=== PATIENT | male | born 1960 | race Two or more races ===

== ENCOUNTER 2025-07-08 07:00 | Day surgery (SDC) | payer OTHER ==
[2025-07-05 12:16] VITALS: BP 160/80
[~2025-07-08] VITALS: Ht 170.2 cm; Wt 65.8 kg
[~2025-07-08 07:00] MED LIST: IRBESARTAN75 MG PO; SYNTHROID50 MCG PO
[2025-07-08] MEDS ORDERED: CEFAZOLIN SODIUM 1,000 MG VIAL ONE (08:15)
[2025-07-08] MEDS ORDERED: LIDOCAINE HCL 1%/EPINEPHRINE 20ML VIAL IJ ONE (09:20)
[2025-07-08] MEDS ORDERED: BUPIVACAINE HCL/MPF 0.5% 30ML VIAL ONE (09:20)
[2025-07-08] MEDS ORDERED: SUGAMMADEX SODIUM 200 MG/2 ML VIAL IV ONE (11:04)
== END 2025-07-08 16:10 | disposition home or self-care (01) ==
LOC: CIR.AMB 07:00
PROVIDERS: ATTEND Surgery
DX: K40.20 Bilateral inguinal hernia, without obstruction or gangrene, not specified as recurrent (principal)
CPT/HCPCS: 49650; C1781